=== PATIENT | female | born 1975 | race Hispanic/Latino ===

== ENCOUNTER 2018-07-06 04:39 | Observation (INO) | payer OTHER ==
[~2018-07-06] VITALS: Ht 157.5 cm; Wt 87.1 kg
[2018-07-06] MEDS ORDERED: SODIUM CHLORIDE 0.9% 1000ML 1,000 ML IV STA (04:48)
[2018-07-06] MEDS ORDERED: ONDANSETRON HCL INJ 2MG/ML 2ML 2 MG/ML VIAL IV STA (04:48)
[2018-07-06] MEDS ORDERED: KETOROLAC TROMETHAMINE 30 MG/ML VIAL IV STA (04:48)
[2018-07-06 05:16] LABS: BASOPHILS # (AUTO) 0.1 (0.0-0.1); BASOPHILS % 0.7 % (0.0-1.0); EOSINOPHILS # (AUTO) 0.6 (0.0-0.4); EOSINOPHILS % 5.4 % (0.0-6.0); HEMATOCRIT 39.4 % (34.2-44.1); HEMOGLOBIN 13.4 g/dL (12.0-16.0); LYMPHOCYTES # (AUTO) 3.5 (1.0-3.2); LYMPHOCYTES % 32.2 % (18.0-39.1); MEAN CORPUSCULAR HEMOGLOBIN 29.8 pg (28-32); MEAN CORPUSCULAR VOLUME 87.8 fL (81-99); MONOCYTES # (AUTO) 0.7 (0.2-0.8); MONOCYTES % 6.5 % (4.4-11.3); NEUTROPHILS % 54.8 % (38.7-80.0); PLATELET COUNT 321 x10e3/uL (140-360); RED BLOOD COUNT 4.49 x10e6/uL (3.6-5.1); RED CELL DISTRIBUTION WIDTH 13.3 % (11.7-14.4)
[2018-07-06 05:40] LABS: ALANINE AMINOTRANSFERASE 32 IU/L (0-55); ALBUMIN 3.6 g/dL (3.5-5.0); ALBUMIN/GLOBULIN RATIO 1.1 (0.8-2.0); ALKALINE PHOSPHATASE 98 IU/L (40-150); ANION GAP 10.9 mmol/L (8-16); BLOOD UREA NITROGEN 16 mg/dL (7-26); BUN/CREATININE RATIO 21 (6-25); CALCIUM 9.5 mg/dL (8.4-10.2); CARBON DIOXIDE 24 mmol/L (22-29); CHLORIDE 103 mmol/L (98-107); CREATININE, SERUM 0.78 mg/dL (0.57-1.11); EST GLOMERULAR FILTRATION RATE > 60 ML/MIN (60-); GLUCOSE 100 mg/dL (74-118); POTASSIUM 3.9 mmol/L (3.5-5.1); SODIUM 134 mmol/L (136-145)
[2018-07-06 05:46] LABS: BILIRUBIN,URINE NEGATIVE (NEGATIVE); CLARITY,URINE CLEAR (CLEAR); COLOR,URINE YELLOW (YELLOW); KETONES,URINE NEGATIVE (NEGATIVE); LEUKOCYTE ESTERASE ,URINE NEGATIVE (NEGATIVE); NITRITE,URINE NEGATIVE (NEGATIVE); PROTEIN,URINE DIPSTICK NEGATIVE (NEGATIVE); URINE UROBILINOGEN 0.2 mg/dL (0.2 - 1)
[2018-07-06 05:54] LABS: BACTERIA,URINE RARE /HPF; EPITHELIAL CELLS,URINE FEW /LPF; RBC,URINE 0-5 /HPF (0-5); WBC,URINE (MAN) 0-5 /HPF (0-5)
[2018-07-06] MEDS ORDERED: IOPAMIDOL 370 MG/ML 200 ML INFUS..BTL INJ ONE (06:20)
[2018-07-06] MEDS ORDERED: SODIUM CHLORIDE 0.9% 50ML 50 ML ONE (06:20)
--- NOTE | 2018-07-06 07:21 | Diagnostic Imaging Report ---
EXAMINATION: CT of the abdomen and pelvis with contrast. TECHNIQUE: Spiral CT images of the abdomen and pelvis were performed from the lung bases to the lesser trochanters after the intravenous administration of 100 cc Isovue-370. Coronal and sagittal reformatted images were obtained. COMPARISON: None. CLINICAL HISTORY:Right upper quadrant pain, patient reports history of gallstones DISCUSSION: ABDOMEN/PELVIS: LOWER THORAX:Unremarkable. HEPATOBILIARY: No focal hepatic lesions. No intra-or extrahepatic biliary ductal dilation. Multiple gallstones are identified, including a 1.8 cm calculus at the gallbladder neck. The gallbladder wall is thickened, measuring 5 mm, with mild pericholecystic inflammation. SPLEEN: No splenomegaly. PANCREAS: No focal mass or ductal dilatation. Common bile duct is upper normal in caliber measuring 6-7 mm. ADRENALS: No adrenal nodules. KIDNEYS/URETERS: No hydronephrosis, stones, or solid mass lesions. PELVIC ORGANS/BLADDER: Urinary bladder is incompletely distended but otherwise unremarkable. Multiple cervical Nabothian cysts. 2 cm intramural fibroid near the fundus, with additional smaller fibroid to the right of midline, also near the fundus.. Bilateral ovarian follicles with a probable right ovarian corpus luteum. PERITONEUM/RETROPERITONEUM: No free air or fluid. LYMPH NODES: No intra-abdominal, retroperitoneal, pelvic or inguinal lymphadenopathy. VESSELS: Abdominal aorta, major branch vessels, and iliac arterial systems are well-visualized and patent. Portal vein, splenic vein, and central superior mesenteric vein are patent. GI TRACT: The large bowel shows no evidence of distention or wall thickening. Gas and fecal material are noted throughout. The appendix is normal. No small bowel dilatation to suggest obstruction. The stomach is collapsed with prominent rugal folds. BONES AND SOFT TISSUE: No osseous destructive lesions. Mild degenerative disc changes and facet arthropathy of the lower lumbar spine. Small fat-containing umbilical hernia. Otherwise no focal soft tissue abnormalities. IMPRESSION: Cholelithiasis with CT findings suggestive of acute cholecystitis. Right upper quadrant ultrasound may be obtained for further evaluation if clinical signs are equivocal. Uterine fibroids. Signed by: Dr. Fantasma Renteria M.D. on 07/06/2018 7:17 AM
[2018-07-06] MEDS: PIPER-TAZ 3.375 GM 50 ML IV SCH ×4 (07:59→23:24)
--- OUTSIDE RECORDS SUMMARY | 2018-07-06 08:14 | XMS REPORT ---
Author Author [facility] Address Unknown Phone Unavailable Care Team Providers [facility] Name Role Phone Britt MEYERS Unavailable Unavailable Problems This patient has no known problems. Allergies, Adverse Reactions, Alerts This patient has no known allergies or adverse reactions. Medications This patient has no known medications. Results Test Description Test Time Test Comments Text Results Atomic Results Result Comments CT ABDOMEN/PELVIS W 2018-07-06 07:05:00 [place] [address] Patient Name: ANLI MCLAIN MR #: [id number] : 1975 Age/Sex: 43/F Req #: [id number] Adm Physician: Ordered by: MILLIE MEYERS MD Report #: [id number] Location: ER Room/Bed: Procedure: [id number] CT/CT ABDOMEN/PELVIS W Exam Date: 07/06/18 Exam Time: 0643 REPORT STATUS: Signed EXAMINATION: CT of the abdomen and pelvis with contra st. TECHNIQUE: Spiral CT images of the abdomen and pelvis were performed from the lung bases to the lesser trochanters after the intravenous administration of 100 cc Isovue-370. Coronal and sagittal reformatted images were obtained. COMPARISON: None. CLINICAL HISTORY:Right upper quadrant pain, patient reports history of gallstones DISCUSSION: ABDOMEN/PELVIS: LOWER THORAX:Unremarkable. HEPATOBILIARY: No focal hepatic lesions. No intra-or extrahepatic biliary ductal dilation. Multiple gallstones are identified, including a 1.8 cm calculus at the gallbladder neck. The gallbladder wall is thickened, measuring 5 mm, with mild pericholecystic inflammation. SPLEEN: No splenomegaly. PANCREAS: No focal mass or ductal dilatation. Common bile duct is upper normal in caliber measuring 6-7 mm. ADRENALS: No adrenal nodules. KIDNEYS/URETERS: No hydronephrosis, stones, or solid mass lesions. PELVIC ORGANS/BLADDER: Urinary bladder is incompletely distended but otherwise unremarkable. Multiple cervical Nabothian cysts. 2 cm intramural fibroid near the fundus, with additional smaller fibroid to the right of midline, also near the fundus.. Bilateral ovarian follicles with a probable right ovarian corpus luteum. PERITONEUM/RETROPERITONEUM: No free air or fluid. LYMPH NODES: No intra- abdominal, retroperitoneal, pelvic or inguinal lymphadenopathy. VESSELS: Abdominal aorta, major branch vessels, and iliac arterial systems are well- visualized and patent. Portal vein, splenic vein, and central superior mesenteric vein are patent. GI TRACT: The large bowel shows no evidence of distention or wall thickening. Gas and fecal material are noted throughout. The appendix is normal. No small bowel dilatation to suggest obstruction. The stomach is collapsed with prominent rugal folds. BONES AND SOFT TISSUE: No osseous destructive lesions. Mild degenerative disc changes and facet arthropathy of the lower lumbar spine. Small fat-containing umbilical hernia. Otherwise no focal soft tissue abnormalities. IMPRESSION: Cholelithiasis with CT findings suggestive of acute cholecystitis. Right upper quadrant ultrasound may be obtained for further evaluation if clinical signs are equivocal. Uterine fibroids. Signed by: Dr. Wyatt Renteria M.D. on 07/06/2018 7:17 AM Dictated By: WYATT RENTERIA MD 6 Transcribed By: HOSSEIN on 07/06/18716 COPY TO: MILLIE MEYERS MD
[2018-07-06] MEDS ORDERED: ONDANSETRON HCL INJ 2MG/ML 2ML 2 MG/ML VIAL IV PRN (08:15)
[2018-07-06] MEDS ORDERED: MORPHINE SULFATE INJ 4 MG/ML INJ 1ML IV PRN (08:15)
[2018-07-06] MEDS: SODIUM CHLORIDE 0.9% 1000ML 1,000 ML IV SCH ×3 (08:51→23:25)
--- NOTE | 2018-07-06 08:55 | Diagnostic Imaging Report ---
Examination: Single AP view of the chest. COMPARISON: None. INDICATION: Right upper quadrant pain DISCUSSION: Lines/tubes: None. Lungs: The lungs are well inflated and clear. There is no evidence of pneumonia or pulmonary edema. Pleura: There is no pleural effusion or pneumothorax. Heart and mediastinum: The heart and the mediastinum are unremarkable. Bones and soft tissues: No acute bony abnormalities. IMPRESSION: 1. No acute cardiopulmonary abnormalities. Signed by: Dr. Fantasma Renteria M.D. on 07/06/2018 8:52 AM
--- NOTE | 2018-07-06 11:36 | NUR ---
Patient resting at this time. No distress noted. Will continue to monitor patient.
--- NOTE | 2018-07-06 13:52 | Pre Op History & Physical ---
CHIEF COMPLAINT: Abdominal pain. HISTORY OF PRESENT ILLNESS: The patient is a 43-year-old female, who presents with complaints of right upper quadrant abdominal pain. This started last evening and persisted all night, but now is better. She has not had similar pains in the past. She has had some nausea, no vomiting. There are no symptoms of jaundice. Evaluation with CT scan of the abdomen and pelvis revealed calcified gallstones with a large stone impacting the gallbladder neck with some mild gallbladder wall thickening and mild inflammation. There are no symptoms of jaundice. PAST MEDICAL HISTORY: Otherwise unremarkable. She denies chronic medical problems. PAST SURGICAL HISTORY: Has not had previous surgeries. ALLERGIES: THERE WERE NO KNOWN ALLERGIES. No current medications. FAMILY HISTORY: Noncontributory. SOCIAL HISTORY: The patient smokes cigarettes on the weekends and drinks beer on the weekends. REVIEW OF SYSTEMS: As stated above, otherwise was negative. PHYSICAL EXAMINATION: GENERAL: The patient is awake, alert, in no distress. VITAL SIGNS: Normal. She is afebrile. HEENT: There was no scleral icterus. NECK: Has no masses. LUNGS: Equal breath sounds are clear bilaterally. CARDIAC: Regular rate and rhythm with no murmur. ABDOMEN: Soft. There is mild right upper quadrant tenderness. There is no mass. There were no signs of peritonitis. There was no organomegaly. EXTREMITIES: Have no edema. Pulses are palpable. NEUROLOGIC: Intact. LABORATORY DATA: White blood cell count 10.95, hemoglobin and hematocrit are normal. Chemistries were normal. ASSESSMENT: A 43-year-old female with findings suggestive of acute cholecystitis with cholelithiasis. She is now admitted to the hospital. PLAN: Laparoscopic cholecystectomy. The procedure was explained to the patient including risks, benefits, and alternatives. She understands the procedure. She has had the opportunity to ask questions. She is aware of the possible need for open surgery. MD ANIA Orourke/LUDMILA /[id number]
[2018-07-06 14:19] VITALS: BP 102/68
--- NOTE | 2018-07-06 16:48 | NUR ---
RECEIVED REPORT FROM ER NURSE. WAITING FOR PATIENT AT THIS TIME.
[2018-07-06 17:18] VITALS: BP 128/59
[2018-07-06 17:39] VITALS: BP 128/59
--- NOTE | 2018-07-06 19:00 | NUR ---
patient received awake, alert, lying quietly in bed. no c/o pain noted. ivf continue to infuse without difficulty. patient instructed on npo status after mn. patient verbalizes understanding of this. pm assessment complete. patient instructed to call for assistance when needed.
[2018-07-06 19:30] VITALS: BP 116/67
[2018-07-06 20:00] VITALS: BP 116/67
[2018-07-07] VITALS (7 sets, daily range): BP systolic 104–125; BP diastolic 56–77
--- NOTE | 2018-07-07 04:00 | NUR ---
patient appears to be resting quietly. no c/o pain noted. ivf continue to infuse without difficulty. patient remains npo.
[2018-07-07] MEDS: PIPER-TAZ 3.375 GM 50 ML IV SCH ×4 (05:49→23:42)
[2018-07-07 06:10] LABS: BASOPHILS # (AUTO) 0.1 (0.0-0.1); BASOPHILS % 1.1 % (0.0-1.0); EOSINOPHILS # (AUTO) 0.4 (0.0-0.4); HEMATOCRIT 35.4 % (34.2-44.1); HEMOGLOBIN 11.9 g/dL (12.0-16.0); LYMPHOCYTES # (AUTO) 3.3 (1.0-3.2); LYMPHOCYTES % 38.6 % (18.0-39.1); MEAN CORPUSCULAR HEMOGLOBIN 29.9 pg (28-32); MEAN CORPUSCULAR HGB CONC 33.6 g/dL (31-35); MEAN CORPUSCULAR VOLUME 88.9 fL (81-99); MONOCYTES # (AUTO) 0.6 (0.2-0.8); MONOCYTES % 7.2 % (4.4-11.3); NEUTROPHILS # (AUTO) 4.1 (2.1-6.9); NEUTROPHILS % 47.7 % (38.7-80.0); PLATELET COUNT 269 x10e3/uL (140-360); RED BLOOD COUNT 3.98 x10e6/uL (3.6-5.1); RED CELL DISTRIBUTION WIDTH 13.6 % (11.7-14.4)
--- NOTE | 2018-07-07 07:59 | NUR ---
PT ASSISTED TO GET IN SHOWER, PT EDUCATED ON HOW TO USE PREOPERATIVE WIPES, CALL STRING WITHIN REACH, AT SIDE
--- NOTE | 2018-07-07 11:02 | NUR ---
SITTING IN BS CHAIR, PT REPORTS INTERMITTENT COUGH WITH "GREEN" SPUTUM, NO COUGH AT THIS TIME
[2018-07-07] MEDS: SODIUM CHLORIDE 0.9% 1000ML 1,000 ML IV SCH ×2 (11:26→12:29)
--- NOTE | 2018-07-07 11:29 | NUR ---
12PM DAQUAN PULLED AND KIKI, NIC AWARE OF NEED TO INFUSE, PT WHEELED OFF UNIT VIA BED FOR SURGERY, NO CHANGE IN CONDITION, FAMILY AT SIDE
[2018-07-07] MEDS ORDERED: BUPIVACAINE HCL 0.5% INJ 30 ML VIAL INJ ONE (11:44)
[2018-07-07] MEDS ORDERED: MORPHINE SULFATE INJ 4 MG/ML INJ 1ML IV PRN (12:30)
[2018-07-07] MEDS ORDERED: HYDROMORPHONE 2MG/ML 2 MG/ML ML ONE (12:51)
[2018-07-07] MEDS ORDERED: ACETAMINOPHEN 1000 MG/100 ML 100 ML IV ONE (13:17)
--- NOTE | 2018-07-07 14:14 | NUR ---
PT BACK IN ROOM VIA BED FROM PACU, OPENS EYES TO VOICE, IMMEDIATELY CLOSES, 4 TROCAR SITES CDI, 3L NC , SCD'S CONNECTED TO MACHINE, VS 96.5, 70, 98% 3L, 113/65, 14 RR, CALL LIGHT WITHIN REACH, AT SIDE
--- NOTE | 2018-07-07 14:25 | NUR ---
PT TEARFUL, MOANING, STATES "HELP ME", TURNING IN BED, VS WNL,
--- NOTE | 2018-07-07 14:45 | NUR ---
PT PULLING AT IV, PULLING AT O2 AND BLOOD PRESSURE CUFF, RAISING VOICE, STATES "HELP ME", TOSSING AND TURNING IN BED, WHEN ASKED HER NAME, PT STATES "RASHEEDA", PT STARING AT NURSE, REACHING FOR FACE, STATES "HELP ME", VS WNL, AT SIDE, PT UNABLE TO IDENTIFY AT THIS TIME, 1448 TELEPHONED MD TORRES TO MAKE AWARE, ORDERS NOTED TO GIVE ATIVAN IF NEEDED, MADE AWARE RAPID HAS BEEN CALLED, NO NEW ORDERS FROM MD TORRES AT THIS TIME
[2018-07-07] MEDS ORDERED: NALOXONE HCL INJ 0.4 MG/ML AMP ONE ×2 (14:52→14:59)
--- NOTE | 2018-07-07 15:15 | NUR ---
TELEPHONED MD TORRES TO MAKE AWARE THAT NARCAN WAS GIVEN DURING RAPID PER ER MD ORDER, AND THAT PT IS NOW CRYING AND RAISING HER VOICE DUE TO PAIN, BUT IS AWARE OF WHO SHE IS NOW, ORDERS NOTED
[2018-07-07] MEDS: KETOROLAC TROMETHAMINE 30 MG/ML VIAL IV PRN ×2 (15:20→23:42)
--- NOTE | 2018-07-07 15:20 | NUR ---
MEDICATED PER MD ORDER FOR ABD PAIN 09/01, CALL LIGHT WITHIN REACH
[2018-07-07] MEDS: ACETAMINOPHEN 325 MG TAB PO PRN ×2 (16:00→21:47)
--- NOTE | 2018-07-07 16:00 | NUR ---
125/77, 70HR, 100%, CHARGE NURSE IN ROOM WITH PT, PT RESTING WITH EYES CLOSED, CALL LIGHT WITHIN REACH
--- NOTE | 2018-07-07 17:00 | NUR ---
VOICES NO C/O AT THIS TIME, REPORTS PAIN IS "BETTER", CALL LIGHT WITHIN REACH
[2018-07-07] MEDS ORDERED: MIDAZOLAM HCL 2 MG/2 ML VIAL ONE (18:03)
[2018-07-07] MEDS ORDERED: FENTANYL CITRATE/PF 100MCG/2 ML INJ ONE (18:03)
--- NOTE | 2018-07-07 18:16 | NUR ---
TOLERATING WATER AND ICE AT THIS TIME, PAIN "BETTER", NO DISTRESS NOTED, CALL LIGHT WITHIN REACH, AT SIDE
[2018-07-07] MEDS ORDERED: KETOROLAC TROMETHAMINE 30 MG/ML VIAL ONE (18:34)
[2018-07-07] MEDS ORDERED: ROCURONIUM BROMIDE 10 MG/ML 5ML VIAL ONE (18:34)
[2018-07-07] MEDS ORDERED: LIDOCAINE HCL 2% LOCAL INJ 5 ML SDV VIAL INJ ONE (18:34)
[2018-07-07] MEDS ORDERED: PROPOFOL IV EMULSION 10 MG/ML 20 ML VIAL ONE (18:34)
[2018-07-07] MEDS ORDERED: SEVOFLURANE INHAL SOLN 250 ML PEN BTL ONE (18:34)
[2018-07-07] MEDS ORDERED: GLYCOPYRROLATE INJ 1MG/ 5 ML SYR ONE (18:34)
[2018-07-07] MEDS ORDERED: DEXAMETHASONE SOD PHOS INJ 4 MG/ML VIAL ONE (18:34)
[2018-07-07] MEDS ORDERED: ONDANSETRON HCL INJ 2MG/ML 2ML 2 MG/ML VIAL ONE (18:34)
[2018-07-07] MEDS ORDERED: NEOSTIGMINE 5 MG/5ML SYR ONE (18:34)
--- NOTE | 2018-07-07 18:44 | Operative Report ---
DATE OF PROCEDURE: 07/07/2018 SURGEON: Fantasma James MD PREOPERATIVE DIAGNOSES: Acute cholecystitis, cholelithiasis. POSTOPERATIVE DIAGNOSES: Acute cholecystitis, cholelithiasis. PROCEDURE: Diagnostic laparoscopy, laparoscopic cholecystectomy. PEDIATRIC CARE COORDINATOR: None. ANESTHESIA: General endotracheal. INDICATIONS AND FINDINGS: The patient is a 43-year-old female, admitted in the hospital with complaints of severe epigastric right upper quadrant abdominal pain. Workup revealed gallstones. At surgery, the patient with acutely inflamed gallbladder which is mildly edematous with multiple large stones. Cystic duct was about 3 mm in diameter. Common bile duct was about 6 mm in diameter. Liver, stomach, lower abdomen all appeared normal. TECHNIQUE: After adequate general endotracheal anesthesia with the patient in supine position, the abdomen was prepped and draped in sterile fashion with ChloraPrep solution. Skin in the umbilicus was infiltrated with 0.5% Marcaine. Incision was made in the umbilicus, abdominal wall was elevated and Veress needle was introduced, pneumoperitoneum was then created. A 10 mm trocar and cannula was then passed through the umbilical wound. Laparoscopic camera was introduced. Initial laparoscopy revealed gallbladder to be somewhat edematous, mildly distended. Liver, stomach, and lower abdomen all appeared normal. A 10 mm trocar and cannula was placed in the epigastrium and two 5 mm trocars and cannulas were placed in the right upper quadrant. These were placed under direct vision. Fundus of the gallbladder was grasped, retracted superiorly. Neck of the gallbladder was grasped, retracted laterally. Peritoneum over neck of the gallbladder was incised. The gallbladder cystic duct junction was dissected free. Cystic artery was also dissected free. Cystic duct was divided between hemoclips with three clips being left on the common bile duct side. Cystic artery was also divided between hemoclips close to the gallbladder. Posterior branch of cystic artery was also divided between hemoclips close to the gallbladder. The gallbladder was dissected free from the liver using scissors and electrocautery. Once it was entirely free, it was placed into an Endopouch and brought through the epigastric cannula, contained multiple stones. Gallbladder bed was inspected for hemostasis, which was seen to be adequate. It was irrigated with saline. All fluid aspirated, inspected once again for hemostasis, which was seen to be adequate. Instruments and cannulas were removed. Pneumoperitoneum was evacuated. Wounds were then closed. Fascia in the umbilical and epigastric wounds closed with 0 Vicryl and skin to all wounds closed with yany. Sterile dressings applied to each wound. The patient tolerated the procedure well. Estimated blood loss was 20 mL. There were no complications. All counts were correct. The patient was taken to the recovery room in satisfactory condition. MD ANIA Orourke/LUDMILA /[id number]
--- NOTE | 2018-07-07 19:10 | NUR ---
WITH STANDBY ASSIST, PT OOB TO BR, VOIDING WITHOUT DIFFICULTY, STANDBY ASSIST TO CHAIR, CALL LIGHT WITHIN REACH, AT SIDE
[2018-07-07] MEDS: HYDROCODONE/APAP 5MG-325MG TAB PO PRN (19:41)
--- NOTE | 2018-07-07 19:41 | NUR ---
Went into room to give patient pain meds, patient had gotten back in bed with husbands assistance, despite being told to call for assistance back to bed. No difficulty noted getting into bed, but patient moaning in pain. Reminded patient to use pillow to splint abdomen when moving. Reconnected SCDs. Patient stable at this time. Will continue to monitor.
[2018-07-08] VITALS (8 sets, daily range): BP systolic 103–132; BP diastolic 57–76
[2018-07-08] MEDS: ONDANSETRON HCL INJ 2MG/ML 2ML 2 MG/ML VIAL IV PRN ×3 (00:29→22:19)
--- NOTE | 2018-07-08 00:50 | NUR ---
Attempted non-narcotic forms of pain meds d/t incident earlier today. None worked sufficiently, patient continuously moaning, crying, grimacing. Gave morphine 3mg as ordered. Stayed in room for 20 minutes after giving it. Patient A&Ox3 throughout, respiratory rate stable. Patient reports pain finally decreasing. No crying or grimacing noted, much less moaning noted. Will continue to monitor closely.
[2018-07-08] MEDS: SODIUM CHLORIDE 0.9% 1000ML 1,000 ML IV SCH ×3 (03:02→13:51)
[2018-07-08] MEDS: ACETAMINOPHEN 325 MG TAB PO PRN ×2 (03:05→08:56)
[2018-07-08] MEDS: PIPER-TAZ 3.375 GM 50 ML IV SCH ×3 (06:37→16:19)
--- NOTE | 2018-07-08 06:37 | NUR ---
Patient reports her pain is well controlled at this time.
[2018-07-08] MEDS: HYDROCODONE/APAP 5MG-325MG TAB PO PRN ×2 (11:29→16:21)
--- NOTE | 2018-07-08 17:01 | NUR ---
Nutrition Screen Note RD Recommendation for Physician: -Continue current diet as ordered -RD provided education on low fat diet (07/08). Plan of Care: RD following, monitoring for tolerance and adequacy, diet education Nutrition reason for involvement: Nutrition Risk Trigger MST Primary Diagnose(s): acute cholecystitis with cholelithiasis s/p laparoscopic cholecystectomy PMH: None Ht: 62in Wt: 192lb BMI: 35.1kg/m2 IBW: 110lb RD Assessment: (07/08) Chart reviewed. Labs and meds reviewed. 43yo F, who was admitted for RUQ abdominal pain. S/p Laparoscopic cholecystectomy. POD 1. Visited pt in the room. Pt complained of pain and nausea after surgery. Zofran and pain meds were given. No vomiting episode noted as pt only drank water and jello this AM. Pt denied any chewing or swallowing difficulty. Weight has been stable. RD provided education on low fat diet; pt verbalized understanding. Will continue to monitor and follow. Current Diet: low fat diet Malnutrition Evaluation (07/08/2018) The patient does not meet criteria for a specified degree of malnutrition at this time. Will re-evaluate at follow-up as appropriate. Diet Education Needs Assessment: Diet education indicated, pt was agreeable with plan. Learner(s): pt Time spent: 25minutes Barriers: No barriers identified. Cultural/Language Modifications: No cultural/language modifications noted. Pt speaks Kazakh. Readiness: Pt eager to learn. Method: Handouts, explanation Topics: Low fat diet Understanding/Compliance: Expect good understanding/compliance from pt. Will benefit from reinforcement. All questions have been answered. Nutrition Care Level: low Signed: Vivienne Nunez, , RD, LD
--- NOTE | 2018-07-08 19:27 | NUR ---
Received patient in bedside report. A&Ox3, family members at bedside. Patient reports very little pain. No S&S of distress noted at this time. Bed locked in lowest position, side rails upx2, call light in reach.
--- NOTE | 2018-07-08 21:00 | NUR ---
Patient's BLE noted to have some non-pitting edema. Patient had reg diet for dinner, so decreased IV to 75mL/hr to prevent fluid overload.
[2018-07-09] VITALS: BP 113/63
[2018-07-09] MEDS: PIPER-TAZ 3.375 GM 50 ML IV SCH ×2 (00:29→06:16)
[2018-07-09] MEDS: SODIUM CHLORIDE 0.9% 1000ML 1,000 ML IV SCH (00:29)
[2018-07-09 04:00] VITALS: BP 121/59
[2018-07-09] MEDS: ACETAMINOPHEN 325 MG TAB PO PRN (05:54)
--- NOTE | 2018-07-09 06:02 | NUR ---
Patient reports having some soreness to throat, states she will wait for doctor, or for later in the morning so as not to disturb MD if he is sleeping. Pain 4/10, tylenol given. No other S&S of distress noted.
--- NOTE | 2018-07-09 06:56 | NUR ---
Patient complained of severe pain at IV site, requests taking it out. States understanding she will likely need a new one as IV antibiotic did not finish transfusing. R AC 20g IV removed. Catheter tip intact. Pressure dressing applied. Warm compress applied.
--- NOTE | 2018-07-09 07:17 | NUR ---
Rcvd patient in report this am. Patient is awake in bed. Patient is crying that her IV hurts. IV removed at this time. Patient to discharge later today
[2018-07-09] MEDS ORDERED: ULTRACET TABLE1 EACH PO (07:38)
--- NOTE | 2018-07-09 07:58 | Discharge Summary ---
ADMISSION DIAGNOSES: Acute cholecystitis, cholelithiasis. DISCHARGE DIAGNOSES: Acute cholecystitis, cholelithiasis. PRINCIPAL PROCEDURE: Laparoscopic cholecystectomy. HISTORY OF PRESENT ILLNESS: The patient is a 43-year-old female, who presents with complaints of severe right upper quadrant abdominal pain. Workup revealed gallstones. HOSPITAL COURSE: The patient admitted to the hospital, underwent surgery on the 2nd hospital day, she had laparoscopic cholecystectomy. Postoperatively, the patient had some reaction to narcotics that she received. Lethargy and confusion. This resolved with Narcan. Otherwise, she was started on a diet. She tolerated without problem. She did complain of incisional pain on the 1st postop day, was taking small amounts of p.o., but this improved. She was out of bed ambulating and she was discharged home on the 2nd postop day. At this time, she was tolerating diet. She complained of only sore throat. Wounds were clean. DISCHARGE MEDICATION: Ultracet. FOLLOWUP: She will follow up with Dr. James in one week after discharge. DISPOSITION: To home in satisfactory condition on a regular diet. MD ANIA Orourke/LUDMILA /[id number]
[2018-07-09 08:19] VITALS: BP 118/67
[2018-07-09] MEDS: HYDROCODONE/APAP 5MG-325MG TAB PO PRN (08:49)
[2018-07-09 09:27] VITALS: BP 118/67
--- NOTE | 2018-07-09 09:43 | NUR ---
Patient is AAOx3. Patient i spost op day 2 lap genaro. Patient c/o pain in her abdomen. PRN pain meds given. Lung miller clear to auscultation. Patient encouraged to use her incentive spirometer. Patient bowel sounds present x4 and active. No edema noted. Patient has discharge orders and wants to shower prior to discharge
--- NOTE | 2018-07-09 10:57 | NUR ---
Patient discharged from facility to home. Patient assisted out via staff in wheelchair. Reviewed all discharge paperwork, follow up appts reviewed and RX's given. No questions noted or concerns at this time
== END 2018-07-09 10:55 | disposition home or self-care (01) ==
LOC: ER 04:39 → INTOOBSV 08:12 → ERHOLD 08:12 → MED/SURG 17:09
PROVIDERS: ADMIT Surgery; ATTEND Surgery
DX: K80.00 Calculus of gallbladder with acute cholecystitis without obstruction (principal); K82.8 Other specified diseases of gallbladder; R53.83 Other fatigue; R41.0 Disorientation, unspecified; T40.2X5A Adverse effect of other opioids, initial encounter; Y92.230 Patient room in hospital as the place of occurrence of the external cause
CPT/HCPCS: 36415; 71045; 74177; 80053; 81001; 82948; 84702; 85025; 88304; 93005; 96374; 96375; 99284; G0378; J1100; J1885; J2001; J2250; J2270; J2310; J2405; J2543; J7030; Q9967